=== PATIENT | male | born 1940 | race Caucasian/White ===

== ENCOUNTER → 2022-08-09 | Outpatient (CLI) | payer MEDICARE, BC, OTHER ==
[~2022-08-09] MED LIST: ATOR1TAB21 PO; CENT1TAB2 PO; CHOL4POW26 PO; FLUO1OPD OD; NEXI40GR PO; QC F0.52 PO; SEMA14TA2 PO; UPAD45TA PO; VITA500C24 PO
== END ==
LOC: M LABSMTC 11:34
PROVIDERS: ATTEND Anesthesiology
DX: Z01.812 Encounter for preprocedural laboratory examination (principal); Z20.822 Contact with and (suspected) exposure to COVID-19

== ENCOUNTER 2022-08-14 08:08 | Day surgery (SDC) | payer MEDICARE, BC, OTHER ==
[~2022-08-14] VITALS: Ht 177.8 cm; Wt 97.0 kg
[~2022-08-14 08:08] MED LIST changes: +NS 1,000 ML IV ONE
[2022-08-14 11:05] VITALS: BP 118/60
== END 2022-08-14 10:50 | disposition home or self-care (01) ==
LOC: M OPP 08:08 → EDUNIT# 14:15
PROVIDERS: ATTEND Internal Medicine Gastroenterology
DX: K52.9 Noninfective gastroenteritis and colitis, unspecified (principal); K57.30 Diverticulosis of large intestine without perforation or abscess without bleeding; K64.4 Residual hemorrhoidal skin tags; K64.8 Other hemorrhoids; Z87.891 Personal history of nicotine dependence; Z79.02 Long term (current) use of antithrombotics/antiplatelets; Z79.84 Long term (current) use of oral hypoglycemic drugs; Z79.899 Other long term (current) drug therapy; Z88.7 Allergy status to serum and vaccine; E11.9 Type 2 diabetes mellitus without complications; Z80.0 Family history of malignant neoplasm of digestive organs; Z80.1 Family history of malignant neoplasm of trachea, bronchus and lung; Z80.8 Family history of malignant neoplasm of other organs or systems

== ENCOUNTER → 2023-01-09 | Outpatient (CLI) | payer MEDICARE, BC, OTHER ==
[~2023-01-09] MED LIST changes: -NS 1,000 ML IV ONE
== END ==
LOC: M RAD 09:16
PROVIDERS: ATTEND Internal Medicine Gastroenterology
DX: K58.9 Irritable bowel syndrome, unspecified (principal)

== ENCOUNTER → 2023-08-10 | Outpatient (CLI) | payer MEDICARE, BC, OTHER ==
[~2023-08-10] MED LIST changes: +E-Z-GAS II EFFERVESCENT PACKET (SODIUM BICARB./CITRIC ACID/SIMETHICONE) As Ordered ONE; +E-Z-HD 98% w/w 340GM SUSP BTL As Ordered ONE; +E-Z-PAQUE 96% w/w SUSP 176GM BTL As Ordered ONE
== END ==
LOC: M RAD 09:09
PROVIDERS: ATTEND Internal Medicine Gastroenterology
DX: K58.9 Irritable bowel syndrome, unspecified (principal)